=== PATIENT | female | born 1965 | race Caucasian/White ===

== ENCOUNTER 2022-08-17 09:00 | Emergency (ER) | payer OTHER, SELFPAY ==
[2022-08-17 09:32] VITALS: BP 160/111; PULSE 87; RESP 18; TEMP 36.6; O2SAT 94
--- NOTE | 2022-08-17 09:39 | ECG_ITS ---
Measurements Intervals Alexander Rate: 96 P: 82 OR: 122 QRS: 90 QRSD: 71 T: 67 QT: 337 QTc: 426 Interpretive Statements SINUS RHYTHM NONSPECIFIC ST SEGMENT DEPRESSION/CONSIDER INFERIOR ISCHEMIA ABNORMAL ECG NO PREVIOUS ECG AVAILABLE FOR COMPARISON Electronically Signed On 08-17-2022 17:16:33 ADDRESSER by Willard Chau M.D.
[2022-08-17 10:42] LABS: Basophils Percent Auto 0.5 % (0.2-1.2); Eosinophils Absolute Auto 0.1 K/mm3 (0-0.3); Eosinophils Percent Auto 0.8 % (0-4.4); Hematocrit 44.2 % (37.0-47.0); Hemoglobin 14.4 g/dL (12.0-15.0); Immature Granulocyte Absolute 0.02 K/mm3 (0.00-0.031); Immature Granulocyte Percent A 0.3 % (0-0.5); Lymphocytes Absolute Auto 2.13 K/mm3 (0.9-3.2); Lymphocytes Percent Auto 26.7 % (18.3-44.2); Mean Corpuscular HGB Conc 32.6 g/dl (32-36); Mean Corpuscular Hemoglobin 29.1 pg (26-34); Mean Corpuscular Volume 89.5 fl (80-100); Mean Platelet Volume 9.8 fl (7.4-10.4); Monocytes Absolute Auto 0.4 K/mm3 (0.1-0.6); Monocytes Percent Auto 4.8 % (2.6-8.5); Neutrophils Absolute Auto 5.4 K/mm3 (1.3-6.7); Neutrophils Percent Auto 66.9 % (45.5-73.1); Platelet Count Result 261 k/mm3 (150-375); Red Blood Count 4.94 M/mm3 (4.2-5.4); Red Cell Distribution Width 14.2 % (11.5-14.5)
[2022-08-17 11:00] LABS: Alanine Aminotransferase 13 U/L (6-35); Albumin Level 4.6 g/dL (3.5-5.1); Alkaline Phosphatase 85 U/L (38-126); Anion Gap 6 mmol/L (8-16); Aspartate Amino Transferase 29 U/L (14-36); Bilirubin,Total 0.4 mg/dL (0.2-1.3); Blood Urea Nitrogen 3 mg/dL (7-17); Calcium 8.8 mg/dL (8.4-10.2); Carbon Dioxide 30 mmol/L (22-30); Chloride 99 mmol/L (98-107); Estimated Glomerular Filt Rate > 60; Glucose 105 mg/dL (65-110); Potassium 4.1 mmol/L (3.4-5.0); Sodium 135 mmol/L (137-145)
--- NOTE | 2022-08-17 12:17 | ED.DIZZY ---
HPI - Dizziness General Chief Complaint: Dizziness Stated Complaint: weakness and nausea Time Seen by Provider: 08/17/22 12:02 History of Present Illness HPI Narrative: Patient is a 57-year-old female with a history of CAD, PVD, hypertension presenting with lightheadedness. Patient states that she was at work this morning lifting heavy boxes when she became lightheaded and felt like her legs were going to give out. States that she felt nauseated as well. States that her symptoms improved when she sat down and received Zofran from EMS. She denies any chest pain or shortness of breath. No palpitations. Denies recent infectious symptoms. States that she has intermittent numbness and tingling in her left foot which is chronic. States that she has an appointment with a new PCP in 3 hours. Related Data Allergies Allergy/AdvReac Type Severity Reaction Status Date / Time No Known Allergies Allergy Verified 08/17/22 09:00 Review of Systems Review of Systems: All systems reviewed & are unremarkable except as noted in HPI and below Exam Narrative: GENERAL: Well-appearing, well-nourished, and in no acute distress. HEAD: Normocephalic, atraumatic. EYES: PERRLA and EOMI. ENT: Nares clear, no rhinorrhea or epistaxis. Mucous membranes moist. NECK: Supple. CHEST: Clear to auscultation. No respiratory distress. HEART: Regular rate and rhythm. No murmur heard. Normal peripheral pulses. ABDOMEN: Soft, nontender, nondistended, normal active bowel sounds. EXTREMITIES: Normal range of motion. No edema. SKIN: Warm, dry, no rash. NEURO: No focal deficits. Alert and oriented x3. PSYCH: Normal mood and affect. Course Vital Signs Vital signs: Vital Signs Temperature 97.9 F 08/17/22 09:32 Pulse Rate 87 08/17/22 09:32 Respiratory Rate 18 08/17/22 09:32 Blood Pressure 160/111 H 08/17/22 09:32 Pulse Oximetry 94 08/17/22 09:32 Oxygen Delivery Room Air 08/17/22 09:32 Temperature 97.9 F 08/17/22 09:32 Pulse Rate 87 08/17/22 09:32 Respiratory Rate 18 08/17/22 09:32 Blood Pressure 160/111 H 08/17/22 09:32 Pulse Oximetry 94 08/17/22 09:32 Oxygen Delivery Room Air 08/17/22 09:32 MDM - Dizziness MDM Narrative Medical decision making narrative: Patient is a 57-year-old female presenting with an episode of lightheadedness. Patient is hypertensive, otherwise vitals are within normal limits. Exam is unremarkable. EKG per my interpretation shows normal sinus rhythm, normal axis and intervals, no ST elevations or depressions. Blood work is unremarkable. Patient currently feels well. States that she would like to go home. From her description of the episode, it sounds like she had an episode of vasovagal syncope versus orthostatic hypotension. Pt received fluids, continues to feel well. She has an appointment with a primary care doctor in 2 hours. Appropriate return precautions given. Patient discharged in stable condition. Lab Data 08/17/22 10:33 08/17/22 10:33 Labs: Lab Results 08/17/22 08/17/22 Range/Units 10:33 10:33 WBC 8.0 (4.5-10.0) K/mm3 RBC 4.94 (4.2-5.4) M/mm3 Hgb 14.4 (12.0-15.0) g/dL Hct 44.2 (37.0-47.0) % MCV 89.5 (80-100) fl MCH 29.1 (26-34) pg MCHC 32.6 (32-36) g/dl RDW 14.2 (11.5-14.5) % Plt Count 261 (150-375) k/mm3 MPV 9.8 (7.4-10.4) fl Immature Gran % (Auto) 0.3 (0-0.5) % Neut % (Auto) 66.9 (45.5-73.1) % Lymph % (Auto) 26.7 (18.3-44.2) % Pine % (Auto) 4.8 (2.6-8.5) % Eos % (Auto) 0.8 (0-4.4) % Baso % (Auto) 0.5 (0.2-1.2) % Lymph # (Auto) 2.13 (0.9-3.2) K/mm3 Pine # (Auto) 0.4 (0.1-0.6) K/mm3 Eos # (Auto) 0.1 (0-0.3) K/mm3 Baso # (Auto) 0.0 (0.0-0.1) K/mm3 Abs Immat Gran (auto) 0.02 (0.00-0.031) K/mm3 Absolute Neuts (auto) 5.4 (1.3-6.7) K/mm3 Absolute Nucleated RBC 0.0 (0.0-0.012) K/mm3 Nucleated RBC % 0.0 (0.0-0.2) % Sodium 135 L (137-145) mmol
[2022-08-17] MEDS: SODIUM CHLORIDE 0.9% IV 1,000 ML 999 ML IV CONT (12:54)
== END 2022-08-17 13:56 | disposition home or self-care (01) ==
PROVIDERS: General Practice; Emergency Provider Emergency Medicine
DX: R42 Dizziness and giddiness (principal); I25.10 Atherosclerotic heart disease of native coronary artery without angina pectoris; I10 Essential (primary) hypertension; I73.9 Peripheral vascular disease, unspecified; R94.31 Abnormal electrocardiogram [ECG] [EKG]
CPT/HCPCS: 36415; 80053; 85025; 93005; 96360; 99284; J7030